=== PATIENT | female | born 1985 | race Caucasian/White ===

== ENCOUNTER → 2018-12-07 | Outpatient (CLI) | payer OTHER ==
--- NOTE | 2018-12-08 07:30 | US ---
EXAMINATION TYPE: Transabdominal DATE OF EXAM: 12/07/2018 4:38 PM COMPARISON: us 08/28/2016 CLINICAL HISTORY: Z36 Confirm dates. EXAM PERFORMED: Transabdominal (TA) EXAM MEASUREMENTS: GESTATIONAL AGE / DATING Physician Established: (10 weeks/5 days) EDC: 06/30/2019 Dates by LMP: (10 weeks/5 days) EDC: 06/30/2019 Dates by First Scan: No previous this is first scan Dates by Current Scan for: (10 weeks/6 days) EDC: 06/29/2019 MATERNAL ANATOMY Uterus: 12.5 X 7.3 x 9.2 cm Right Ovary: 1.9 x 1.9 x 1.6 cm Left Ovary: 2.8 x 2.4 x 2.4 cm Post CDS / Adnexa: wnl Presence of free fluid: No Presence of corpus luteal cyst: No Presence of subchorionic bleed: Yes, small, less than 25% the gestational sac diameter. GESTATION / SURVEY CRL: 3.9 cm (10 weeks/6 days) Yolk Sac (normal less than 6mm): 4mm Heart Rate: 158 bpm Rhythm: Normal IUP: Viable IUP Date of LMP: 09/23/2018 Beta HcG (if available): Not available at this time Viable IUP, measurements consistent with dates. Multiple probable fibroids visualized, largest to the left of the gestational sac measuring 2.3 x 1.9 x 2.0 cm IMPRESSION: 1. Single live intrauterine with a calculated sonographic age of 10 weeks and 6 days and es timated date of delivery of 06/29/2019, concordant with menstrual age. 2. Multiple uterine leiomyomas, largest measuring 2.3 cm. None significantly impresses upon the gesta tional sac at this time. 3. Small subchorionic hemorrhage, less than 25% the gestational sac diameter.
== END ==
LOC: RADUSWWP 16:10
PROVIDERS: ATTEND Obstetrics & Gynecology
DX: O20.8 Other hemorrhage in early pregnancy (principal); O99.89 Other specified diseases and conditions complicating pregnancy, childbirth and the puerperium; D25.9 Leiomyoma of uterus, unspecified; Z3A.10 10 weeks gestation of pregnancy
CPT/HCPCS: 76801

== ENCOUNTER 2019-06-15 02:07 | Inpatient (IN) | payer OTHER ==
[2019-06-15] MEDS ORDERED: CARBOPROST TROMETHAMINE 250 MCG/ML 1 ML AMP IM PRN (02:30)
[2019-06-15] MEDS ORDERED: OXYTOCIN 10 UNIT/ML 1 ML VIAL IM PRN (02:30)
[2019-06-15] MEDS ORDERED: AMPICILLIN 2,000 MG in SODIUM CHLORIDE 0.9% 100 ML IVPB STA (02:30)
[2019-06-15] MEDS ORDERED: LIDOCAINE 0.5% (PF) 5 MG/ML (50 ML SDV) SQ PRN (02:30)
[2019-06-15] MEDS ORDERED: TERBUTALINE 1 MG/ML VIAL SQ PRN (02:30)
[2019-06-15] MEDS ORDERED: METHYLERGONOVINE 0.2 MG/ML 1 ML AMP IM PRN (02:30)
[2019-06-15] MEDS: LACTATED RINGERS 1,000 ML IV SCH ×2 (02:44→17:22)
[2019-06-15 02:51] VITALS: BMI 26.5
[2019-06-15 03:32] LABS: Basophils # (A) 0.1 k/uL (0-0.2); Basophils % (A) 0 %; Eosinophils # (A) 0.1 k/uL (0-0.7); Eosinophils % (A) 0 %; HCT 36.1 % (34.0-46.0); HGB 12.6 gm/dL (11.4-16.0); Lymphocytes % (A) 12 %; MCH 30.9 pg (25.0-35.0); MCHC 34.8 g/dL (31.0-37.0); MCV 88.7 fL (80.0-100.0); Mean Platelet Volume 8.7; Monocytes # (A) 0.6 k/uL (0-1.0); Monocytes % (A) 4 %; Neutrophils # (A) 13.5 k/uL (1.3-7.7); Neutrophils % (A) 82 %; Platelet Count 245 k/uL (150-450); RBC 4.07 m/uL (3.80-5.40); WBC 16.5 k/uL (3.8-10.6)
[2019-06-15] MEDS ORDERED: diphenhydrAMINE 50 MG CAP PO PRN (03:42)
[2019-06-15] MEDS ORDERED: diphenhydrAMINE 25 MG CAP PO PRN (03:42)
[2019-06-15] MEDS ORDERED: ZOLPIDEM 5 MG TAB PO PRN (03:42)
[2019-06-15] MEDS ORDERED: ACETAMINOPHEN TAB 325 MG TAB PO PRN (03:42)
[2019-06-15] MEDS ORDERED: LANOLIN CREAM 5 GM TUBE TOPICAL PRN (03:42)
[2019-06-15] MEDS ORDERED: diphenhydrAMINE 50 MG/ML 1 ML VIAL IVP PRN ×2 (03:42)
[2019-06-15] MEDS ORDERED: HYDROCORTISONE 2.5% RECTAL CREAM 30 GM TUBE RECTAL PRN (03:42)
[2019-06-15] MEDS ORDERED: WITCH HAZEL 1 EACH MED..PAD TOPICAL PRN (03:42)
[2019-06-15] MEDS ORDERED: BENZOCAINE/MENTHOL SPRAY 1 GM/SPRAY AEROSOL TOPICAL PRN (03:42)
[2019-06-15] MEDS ORDERED: IBUPROFEN 600 MG TAB PO PRN (03:42)
[2019-06-15] MEDS ORDERED: SIMETHICONE 80 MG CHEWABLE PO PRN (03:42)
[2019-06-15] MEDS ORDERED: OXYTOCIN 20 UNITS/1000 ML NS 1,000 ML IV SCH (03:45)
--- NOTE | 2019-06-15 03:45 | P.HPOB ---
History of Present Illness H&P Date: 06/15/19 Chief Complaint: Intrauterine at term: Likely prolonged rupture of membranes Patient is 33-year-old at 37 weeks 6 days gestation arrives in active labor. She arrives complaining that she may started leaking fluid up to 2 days ago but did not feel like it was ruptured membranes and therefore did not come into the hospital. She does have a category 1 tracing and is bar every 2-3 minutes with cervical change. Her otherwise had been unremarkable and she was feeling well otherwise. No other medical history at all. Pertinent labs O+ blood type Rh and it was negative, rubella is immune, hepatitis B surface antigen and RPR as well as GBS were all negative. She will however received antibiotics while in labor due to prolonged rupture. She is currently dilated to complete at this time that I arrived as she was rapidly progressing in labor. Past Medical History Past Medical History: No Reported History History of Any Multi-Drug Resistant Organisms: None Reported Additional Past Surgical History / Comment(s): Leap procedure at age of 20 Past Anesthesia/Blood Transfusion Reactions: No Reported Reaction Past Psychological History: No Psychological Hx Reported Smoking Status: Current every day smoker Past Alcohol Use History: None Reported Past Drug Use History: None Reported - Past Family History Father Family Medical History: No Reported History Medications and Allergies Home Medications Medication Instructions Recorded Confirmed Type Pnv,Calcium 72/Iron/Folic Acid 1 tab PO DAILY 06/15/19 06/15/19 History [ Plus Tablet] Allergies Allergy/AdvReac Type Severity Reaction Status Date / Time No Known Allergies Allergy Verified 06/15/19 02:13 Exam Osteopathic Statement: *. No significant issues noted on an osteopathic structural exam other than those noted in the History and Physical/Consult. Vital Signs Temp Pulse Resp BP Pulse Ox 06/15/19 02:32 97 F L 68 16 136/66 98 06/15/19 02:30 97 F L 68 16 136/66 98 Intake and Output 06/14/19 06/14/19 06/15/19 14:59 22:59 06:59 Other: Weight 65.771 kg - OBG Physical Exam Breast: both: normal (no masses) Abdomen: bowel sounds normal, no diffuse tenderness, no bruit present, no guarding noted, no hepatomegaly, no splenomegaly, no mass Vulva: both: normal Vagina: normal moisture, no discharge Cervix: no lesion, no discharge Uterus: normal size, normal contour Adnexa: both: normal Anus/Rectum: normal perianal skin, no rectal mass, no hemorrhoids, heme negative Results Result Diagrams: 06/15/19 02:44 Abnormal Lab Results - Last 24 Hours (Table) 06/15/19 Range/Units 02:44 WBC 16.5 H (3.8-10.6) k/uL Neutrophils # 13.5 H (1.3-7.7) k/uL
--- NOTE | 2019-06-15 03:46 | P.PROBDLV ---
Vaginal Delivery Note - . Vaginal Delivery Note: Patient rapidly progressed to precipitous delivery. Once she was complete she pushed in delivered a viable female over an intact perineum from left occiput anterior position. Once baby was delivered mouth nares were bulb suctioned and baby was then placed on mother's abdomen where the umbilical cord was allowed to pulsate for 30 seconds prior to clamping and cutting. Once this was accomplished nursery personnel was present and assumed care. Ascent was th en delivered intact and Pitocin was added to the IV. scores were 9 and 9 at one and 5 minutes. Weight is pending but both mother and baby appear stable at this time.
[2019-06-15] MEDS ORDERED: AMPICILLIN 1,000 MG in SODIUM CHLORIDE 0.9% 50 ML IVPB SCH (06:31)
[2019-06-15] MEDS: SENNOSIDES-DOCUSATE SODIUM 1 EACH TAB PO SCH (07:49)
[2019-06-16] MEDS: SENNOSIDES-DOCUSATE SODIUM 1 EACH TAB PO SCH ×3 (00:22→21:22)
[2019-06-16 05:58] LABS: Basophils % (A) 0 %; Eosinophils # (A) 0.1 k/uL (0-0.7); Eosinophils % (A) 1 %; HCT 34.3 % (34.0-46.0); HGB 11.8 gm/dL (11.4-16.0); Lymphocytes # (A) 1.8 k/uL (1.0-4.8); Lymphocytes % (A) 17 %; MCH 30.9 pg (25.0-35.0); MCHC 34.4 g/dL (31.0-37.0); MCV 89.6 fL (80.0-100.0); Mean Platelet Volume 9.2; Monocytes # (A) 0.4 k/uL (0-1.0); Monocytes % (A) 4 %; Neutrophils # (A) 8.3 k/uL (1.3-7.7); Neutrophils % (A) 78 %; Platelet Count 206 k/uL (150-450); RBC 3.83 m/uL (3.80-5.40); WBC 10.6 k/uL (3.8-10.6)
--- NOTE | 2019-06-16 08:09 | P.DS ---
Providers Date of admission: 06/15/19 02:25 Expected date of discharge: 06/16/19 Attending physician: Alexandria Salinas Primary care physician: Alexandria Salinas - Discharge Diagnosis(es) (1) Normal vaginal delivery Current Visit: Yes Status: Acute Hospital Course: Patient presented in active labor. She underwent normal vaginal delivery. Her course was uncomplicated. She denies nausea, vomiting, chest pain, shortness of breath or any calf pain. She'll be discharged home day #1 in stable condition to follow-up with me in 6 weeks. Plan - Discharge Summary New Discharge Prescriptions: No Action Pnv,Calcium 72/Iron/Folic Acid [ Plus Tablet] 1 tab PO DAILY Discharge Medication List Pnv,Calcium 72/Iron/Folic Acid [ Plus Tablet] 1 tab PO DAILY 06/15/19 [History] Follow up Appointment(s)/Referral(s): Alexandria Salinas DO [Primary Care Provider] - 6 Weeks Discharge Disposition: HOME SELF-CARE
[2019-06-17] MEDS: SENNOSIDES-DOCUSATE SODIUM 1 EACH TAB PO SCH (08:50)
[2019-06-17 08:51] VITALS: BP 122/64; PULSE 53; RESP 18; TEMP 98.4
== END 2019-06-17 11:11 | disposition home or self-care (01) | DRG 807 ==
LOC: FBPOP 02:07 → 4FBP 02:25
PROVIDERS: ADMIT Obstetrics & Gynecology; ATTEND Obstetrics & Gynecology
PROC: 10E0XZZ Delivery of Products of Conception, External Approach (ICD-10-PCS; principal; 2019-06-15)
DX: O42.12 Full-term premature rupture of membranes, onset of labor more than 24 hours following rupture (principal); Z37.0 Single live birth; O99.334 Smoking (tobacco) complicating childbirth; F17.200 Nicotine dependence, unspecified, uncomplicated; O62.3 Precipitate labor; Z3A.37 37 weeks gestation of pregnancy; Z71.6 Tobacco abuse counseling; Z79.899 Other long term (current) drug therapy
CPT/HCPCS: 59025; 84112; 85025; 86850; 86900; 86901; 88307; 99213

== ENCOUNTER → 2025-03-07 | Outpatient (CLI) | payer OTHER ==
--- NOTE | 2025-03-07 08:30 | MM ---
Reason for Exam: Additional evaluation requested from abnormal screening. Last screening mammogram was performed less than 1 month ago. Patient History: Menarche at age 14. First Full-Term at age 25. Patient has history of breast feeding. Risk Values: Sharifa 5 year model risk: 0.4%. NCI Lifetime model risk: 9.1%. Prior Study Comparison: 02/21/2025 Bilateral MG screening mammo w CAD, [facility]. Tissue Density: The breasts are extremely dense, which lowers the sensitivity of mammography. Findings: Analyzed By CAD. On the right, on additional views, either focal dense tissue versus a 9 mm circumscribed nodule upper inner subareolar region for which ultrasound is recommended. On the left, no persisting abnormality along the lateral aspect of the breast. Findings compatible with superimposition shadow. Overall Assessment: Incomplete: need additional imaging evaluation, BI-RAD 0 Management: Diagnostic Breast Ultrasound of the right breast. [facility], , 03/07/2025 8:27 AM. Electronically signed and approved by: Sebastian Cruz M.D. Radiologist
--- NOTE | 2025-03-07 08:52 | USB ---
Reason for Exam: Additional evaluation requested from abnormal screening. Patient History: Menarche at age 14. First Full-Term at age 25. Patient has history of breast feeding. Risk Values: Sharifa 5 year model risk: 0.4%. NCI Lifetime model risk: 9.1%. Technique: Method: Targeted. Prior Study Comparison: 02/21/2025 Bilateral MG screening mammo w CAD, [facility]. Findings: The upper section of the breast of the right breast, the axilla of the right breast and the retroareolar of the right breast were scanned. Targeted ultrasound upper quadrant subareolar region shows a benign 5 mm cyst at 12:00 and a second benign superficially located 1.0 x 0.8 x 0.3 cm cyst along the medial subareolar region, likely mammographic correlate. No suspicious solid lesion is seen. Overall Assessment: Benign, BI-RAD 2 Management: Screening Mammogram of both breasts in 1 year. A clinical breast exam by your physician is recommended on an annual basis and results should be correlated with mammographic findings. This exam should not preclude additional follow-up of suspicious palpable abnormalities. Results were given to the patient verbally at the time of exam. [facility], , 03/07/2025 8:50 AM. Electronically signed and approved by: Sebastian Cruz M.D. Radiologist
== END | disposition home or self-care (01) ==
LOC: RADMAMWWP 07:54
PROVIDERS: ATTEND Obstetrics & Gynecology
DX: R92.8 Other abnormal and inconclusive findings on diagnostic imaging of breast (principal); R92.343 Mammographic extreme density, bilateral breasts; N60.01 Solitary cyst of right breast
CPT/HCPCS: 77066; 76642; G0279; 77062